=== PATIENT | female | born 1990 | race African-American/Black ===

== ENCOUNTER 2017-11-04 03:22 | Emergency (ER) | payer MEDICAID | END 2017-11-04 04:20 | disposition left against medical advice (07) | LOC: ER 03:22 | DX: Z53.21 Procedure and treatment not carried out due to patient leaving prior to being seen by health care provider (principal) ==

== ENCOUNTER 2017-11-12 08:53 | Emergency (ER) | payer MEDICAID ==
[~2017-11-12] VITALS: Ht 170.2 cm; Wt 69.0 kg
[2017-11-12 10:40] VITALS: BP 150/89
== END 2017-11-12 10:51 | disposition home or self-care (01) ==
LOC: ER 09:20
DX: M79.641 Pain in right hand (principal); K02.9 Dental caries, unspecified; M79.89 Other specified soft tissue disorders; F17.200 Nicotine dependence, unspecified, uncomplicated; F12.10 Cannabis abuse, uncomplicated; W22.8XXA Striking against or struck by other objects, initial encounter; Y93.89 Activity, other specified; Y92.89 Other specified places as the place of occurrence of the external cause; Y99.8 Other external cause status
CPT/HCPCS: 73110; 73130; 81025; 99284

== ENCOUNTER 2019-01-16 16:27 | Observation (INO) | payer MEDICAID ==
[~2019-01-16] VITALS: Ht 170.2 cm; Wt 68.0 kg
[2019-01-16] MEDS ORDERED: DEXT 5%/LR + PITOCIN 20UNITS/L 1,000 ML IV ONE (16:33)
[2019-01-16] MEDS ORDERED: DEXT 5%/LR + PITOCIN 20UNITS/L 1,000 ML IV SCH (17:04)
[2019-01-16] MEDS ORDERED: ACETAMINOPHEN WITH CODEINE 300/30MG TABLET PO PRN (17:15)
[2019-01-16] MEDS ORDERED: BENZOCAINE/LANOLIN/ALOE VERA SPRAY TOP PRN (17:15)
[2019-01-16] MEDS ORDERED: LANOLIN OINT 7GM TUBE TOP PRN (17:15)
[2019-01-16] MEDS ORDERED: TETANUS, DIPHTHERIA, PERTUSSIS VAC/PF 0.5ML (>7YR OLD) IM ONE (17:15)
[2019-01-16] MEDS ORDERED: HEMORRHOIDAL SUPP PR PRN (17:15)
[2019-01-16] MEDS ORDERED: IBUPROFEN 400MG TABLET PO PRN (17:15)
[2019-01-16] MEDS ORDERED: BISACODYL 10MG SUPP PR PRN (17:15)
[2019-01-16] MEDS ORDERED: RHO(D) IMMUNE GLOBULIN 300 MCG/SYR IM PRN (17:15)
[2019-01-16] MEDS ORDERED: GLYCERIN/WITCH HAZEL LEAF MEDICATED PAD TOP PRN (17:15)
[2019-01-16] MEDS ORDERED: DIPHENHYDRAMINE 25MG CAPSULE PO PRN (17:15)
[2019-01-16 17:22] LABS: BASOPHILS % 0.2 % (0.0-2.0); EOSINOPHILS % 0.5 % (0.0-5.0); HEMATOCRIT. 23.5 % (36.0-48.0); HEMOGLOBIN. 7.8 g/dL (12.0-16.0); LYMPHOCYTES % 16.5 % (20.0-50.0); MEAN CORPUSCULAR HEMOGLOBIN 31.1 pg (28.0-32.0); MEAN CORPUSCULAR VOLUME 93.6 fL (81.0-99.0); MEAN PLATELET VOLUME 10.7 fl (7.4-10.4); MONOCYTES % 6.6 % (2.0-8.0); NEUTROPHILS % 76.2 % (40.0-76.0); PLATELET 144 x1000/uL (130-400); RED BLOOD CELL COUNT 2.51 mill/uL (4.2-5.4); RED CELL DISTRIBUTION WIDTH 13.6 % (11.6-14.6)
[2019-01-16] MEDS: IBUPROFEN 800MG TABLET PO PRN (17:40)
[2019-01-16 17:42] LABS: PARTIAL THROMBOPLASTIN TIME 28.2 sec (23.4-31.0); PROTHROMBIN TIME 10.5 sec (9.6-11.0)
[2019-01-16 17:56] LABS: HEPATITIS B SURFACE ANTIGEN NEGATIVE
[2019-01-16 18:05] VITALS: BP 128/76
[2019-01-16] MEDS ORDERED: DOCUSATE SODIUM 100MG CAPSULE PO SCH (21:00)
[2019-01-16 22:00] VITALS: BP 120/66
[2019-01-16 23:06] LABS: CLARITY URINE CLOUDY (CLEAR); COLOR URINE RED (YELLOW); KETONES URINE NEGATIVE (NEGATIVE); LEUKOCYTE ESTERASE URINE 1+ (NEGATIVE); NITRITE URINE NEGATIVE (NEGATIVE); OCCULT BLOOD URINE 3+ (NEGATIVE); PH URINE 6.5 (4.5-8.0); PROTEIN URINE 1+ (NEGATIVE)
[2019-01-16 23:25] LABS: *BARBITURATES SCREEN URINE NEGATIVE (NEGATIVE); *BENZODIAZEPINES SCREEN URINE NEGATIVE (NEGATIVE); *COCAINE SCREEN URINE NEGATIVE (NEGATIVE); METHADONE URINE SCREEN NEGATIVE (NEGATIVE); OPIATES URINE SCREEN NEGATIVE (NEGATIVE); PHENCYCLIDINE URINE SCREEN NEGATIVE (NEGATIVE)
[2019-01-16 23:35] LABS: *AMPHETAMINES SCREEN URINE PRESUMTIVE POSITIVE (NEGATIVE); CANNABINOID URINE SCREEN PRESUMTIVE POSITIVE (NEGATIVE)
[2019-01-17 06:00] VITALS: BP 122/69
[2019-01-17 07:47] VITALS: BP 109/67
[2019-01-17] MEDS: FERROUS SULFATE 325MG TABLET PO SCH ×3 (08:46→18:10)
[2019-01-17] MEDS: PRENATAL VIT/FE FUMARATE/FA TABLET PO SCH (08:46)
[2019-01-17] MEDS: IBUPROFEN 800MG TABLET PO PRN ×2 (08:46→18:10)
[2019-01-17 15:29] VITALS: BP 108/66
[2019-01-17 22:00] VITALS: BP 109/67
[2019-01-18 06:05] VITALS: BP 111/66
[2019-01-18 07:30] VITALS: BP 108/63
[2019-01-18] MEDS: FERROUS SULFATE 325MG TABLET PO SCH (08:23)
[2019-01-18] MEDS: PRENATAL VIT/FE FUMARATE/FA TABLET PO SCH (08:23)
[2019-01-18] MEDS: IBUPROFEN 800MG TABLET PO PRN (08:29)
[2019-01-21 17:11] LABS: AMPHETAMINE CONF URINE Positive (.); CANNABINOID CONFIRMATION URINE Positive (.)
== END 2019-01-18 12:10 | disposition home or self-care (01) ==
LOC: 8 EST LDRP 16:27 → 8EST 17:57
PROVIDERS: ADMIT Specialist; ATTEND Specialist
DX: O99.013 Anemia complicating pregnancy, third trimester (principal); O70.0 First degree perineal laceration during delivery; O26.93 Pregnancy related conditions, unspecified, third trimester; O99.333 Smoking (tobacco) complicating pregnancy, third trimester; O99.323 Drug use complicating pregnancy, third trimester; Z59.0 Homelessness; Z3A.39 39 weeks gestation of pregnancy
CPT/HCPCS: 36415; 80305; 80307; 80349; 81003; 85025; 85610; 85730; 86592; 86703; 86762; 86850; 86900; 86901; 87086; 87340; G0378; J2590

== ENCOUNTER 2020-10-29 | Inpatient (IN) | payer MEDICAID ==
[~2020-10-29] VITALS: Ht 170.2 cm; Wt 81.6 kg
[2020-10-29] MEDS ORDERED: BUTORPHANOL TARTRATE 2 MG/ML VIAL IV PRN (00:30)
[2020-10-29] MEDS ORDERED: CARBOPROST TROMETHAMINE 250 MCG/ML AMPUL IM PRN (00:30)
[2020-10-29] MEDS ORDERED: DEXT 5%/LR + PITOCIN 20UNITS/L 1,000 ML IV SCH ×2 (00:30→03:45)
[2020-10-29] MEDS ORDERED: METHYLERGONOVINE MALEATE 0.2 MG/ML IM PRN (00:30)
[2020-10-29] MEDS ORDERED: LIDOCAINE HCL 1% 20ML VIAL (Pyxis) INJ INFIL SCH (00:30)
[2020-10-29 01:29] LABS: CHLORIDE 106 mEq/L (98-107)
[2020-10-29 01:30] LABS: CLARITY URINE CLEAR (CLEAR); COLOR URINE YELLOW (YELLOW); KETONES URINE NEGATIVE (NEGATIVE); LEUKOCYTE ESTERASE URINE TRACE (NEGATIVE); NITRITE URINE NEGATIVE (NEGATIVE); OCCULT BLOOD URINE NEGATIVE (NEGATIVE); PROTEIN URINE NEGATIVE (NEGATIVE); SPECIFIC GRAVITY URINE 1.013 (1.005-1.030); UROBILINOGEN URINE 0.2 E.U./dL (0.2-1.0)
[2020-10-29] MEDS ORDERED: PENICILLIN G POTASSIUM 5 MMU in DEXT 5% WATER 100 ML IV SCH (01:30)
[2020-10-29 01:32] LABS: BASOPHILS % 0.2 % (0.0-2.0); EOSINOPHILS % 0.4 % (0.0-5.0); HEMATOCRIT. 32.3 % (36.0-48.0); HEMOGLOBIN. 10.5 g/dL (12.0-16.0); LYMPHOCYTES % 15.4 % (20.0-50.0); MEAN CORPUSCULAR HEMOGLOBIN 30.9 pg (28.0-32.0); MEAN CORPUSCULAR VOLUME 94.7 fL (81.0-99.0); MEAN PLATELET VOLUME 10.6 fl (7.4-10.4); MONOCYTES % 8.4 % (2.0-8.0); NEUTROPHILS % 75.6 % (40.0-76.0); PLATELET 182 x1000/uL (130-400); RED BLOOD CELL COUNT 3.41 mill/uL (4.2-5.4); RED CELL DISTRIBUTION WIDTH 14.8 % (11.6-14.6)
[2020-10-29 01:50] LABS: *BARBITURATES SCREEN URINE NEGATIVE (NEGATIVE); *BENZODIAZEPINES SCREEN URINE NEGATIVE (NEGATIVE); *COCAINE SCREEN URINE NEGATIVE (NEGATIVE); METHADONE URINE SCREEN NEGATIVE (NEGATIVE)
[2020-10-29 01:51] LABS: OPIATES URINE SCREEN NEGATIVE (NEGATIVE); PHENCYCLIDINE URINE SCREEN NEGATIVE (NEGATIVE)
[2020-10-29] MEDS: DEXT 5%/LACTATED RINGERS 1,000 ML IV SCH ×2 (01:51→02:40)
[2020-10-29 01:55] LABS: *AMPHETAMINES SCREEN URINE PRESUMTIVE POSITIVE (NEGATIVE); CANNABINOID URINE SCREEN PRESUMTIVE POSITIVE (NEGATIVE)
[2020-10-29 02:14] LABS: HEPATITIS B SURFACE ANTIGEN NEGATIVE
[2020-10-29 02:17] LABS: INR 0.9; PARTIAL THROMBOPLASTIN TIME 26.6 sec (23.4-31.0); PROTHROMBIN TIME 10.2 sec (9.6-11.0)
[2020-10-29] MEDS ORDERED: ACETAMINOPHEN WITH CODEINE 300/30MG TABLET PO PRN (03:45)
[2020-10-29] MEDS ORDERED: HEMORRHOIDAL SUPP PR PRN (03:45)
[2020-10-29] MEDS ORDERED: GLYCERIN/WITCH HAZEL LEAF MEDICATED PAD TOP PRN (03:45)
[2020-10-29] MEDS ORDERED: IBUPROFEN 800MG TABLET PO PRN (03:45)
[2020-10-29] MEDS ORDERED: LANOLIN OINT 7GM TUBE TOP PRN (03:45)
[2020-10-29] MEDS ORDERED: IBUPROFEN 400MG TABLET PO PRN (03:45)
[2020-10-29] MEDS ORDERED: BISACODYL 10MG SUPP PR PRN (03:45)
[2020-10-29] MEDS ORDERED: DIPHENHYDRAMINE 25MG CAPSULE PO PRN (03:45)
[2020-10-29] MEDS ORDERED: CLINDAMYCIN HCL 150MG CAPSULE PO SCH (06:00)
[2020-10-29] MEDS ORDERED: PENICILLIN G POTASSIUM 2.5 MMU in DEXTROSE 5% WATER 50 ML IV SCH (06:00)
[2020-10-29 06:30] VITALS: BP 143/79
[2020-10-29] MEDS: SIMETHICONE 80MG TABLET CHEW PO SCH ×3 (07:46→20:11)
[2020-10-29] MEDS: PRENATAL VIT/FE FUMARATE/FA TABLET PO SCH (07:55)
[2020-10-29 08:15] VITALS: BP 142/87
[2020-10-29] MEDS ORDERED: PNEUMOCOCCAL 23-VAL P-SAC VAC 0.5 ML IM ONE (09:00)
[2020-10-29] MEDS ORDERED: TETANUS, DIPHTHERIA, PERTUSSIS VAC/PF 0.5ML (>7YR OLD) IM ONE (09:00)
[2020-10-29] MEDS ORDERED: INFLUENZA VACCINE 05/PF 0.5 ML VIAL IM ONE (10:00)
[2020-10-29] MEDS: CLINDAMYCIN HCL 150MG CAPSULE PO SCH ×2 (13:43→20:10)
[2020-10-29 16:14] VITALS: BP 139/48
[2020-10-29 20:00] VITALS: BP 131/76
[2020-10-29] MEDS ORDERED: DOCUSATE SODIUM 100MG CAPSULE PO SCH (21:00)
[2020-10-30] MEDS: CLINDAMYCIN HCL 150MG CAPSULE PO SCH ×2 (02:00→08:29)
[2020-10-30 03:00] VITALS: BP 132/82
[2020-10-30 06:31] LABS: BASOPHILS % 0.4 % (0.0-2.0); EOSINOPHILS % 1.2 % (0.0-5.0); HEMATOCRIT. 29.9 % (36.0-48.0); HEMOGLOBIN. 9.7 g/dL (12.0-16.0); LYMPHOCYTES % 16.5 % (20.0-50.0); MEAN CORPUSCULAR HEMOGLOBIN 30.8 pg (28.0-32.0); MEAN CORPUSCULAR VOLUME 94.7 fL (81.0-99.0); MEAN PLATELET VOLUME 10.3 fl (7.4-10.4); MONOCYTES % 9.3 % (2.0-8.0); NEUTROPHILS % 72.6 % (40.0-76.0); PLATELET 176 x1000/uL (130-400); RED BLOOD CELL COUNT 3.15 mill/uL (4.2-5.4); RED CELL DISTRIBUTION WIDTH 14.6 % (11.6-14.6)
[2020-10-30 08:00] VITALS: BP 131/79
[2020-10-30] MEDS: SIMETHICONE 80MG TABLET CHEW PO SCH ×2 (08:00→12:57)
[2020-10-30] MEDS ORDERED: IBUP-2030 PO (08:05)
[2020-10-30] MEDS: FERROUS SULFATE 325MG TABLET PO SCH ×2 (08:24→12:30)
[2020-10-30] MEDS: PRENATAL VIT/FE FUMARATE/FA TABLET PO SCH (08:24)
== END 2020-10-30 15:30 | disposition home or self-care (01) | DRG 560 ==
LOC: OBSVTOIN → 8 EST LDRP → 8EST 07:06
PROVIDERS: ADMIT Specialist; ATTEND Specialist
PROC: 10E0XZZ Delivery of Products of Conception, External Approach (ICD-10-PCS; principal; 2020-10-29)
DX: O77.0 Labor and delivery complicated by meconium in amniotic fluid (principal); O99.324 Drug use complicating childbirth; D64.9 Anemia, unspecified; O99.02 Anemia complicating childbirth; O99.334 Smoking (tobacco) complicating childbirth; Z37.0 Single live birth; F12.10 Cannabis abuse, uncomplicated; F15.10 Other stimulant abuse, uncomplicated; F19.10 Other psychoactive substance abuse, uncomplicated; Z3A.38 38 weeks gestation of pregnancy; Z59.0 Homelessness
CPT/HCPCS: 36415; 76805; 76818; 80053; 80305; 80349; 80359; 81003; 84550; 85025; 86592; 86703; 86762; 86850; 86900; 87070; 87340; 90686; 90715; 90732; 99281; G0378; J0595; J2540; J2590; J7060; J7121